=== PATIENT | male | born 1945 | race Caucasian/White ===

== ENCOUNTER 2016-09-19 14:03 | Emergency (ER) | payer MEDICARE, BC ==
[2016-09-19 14:15] VITALS: BP 156/71
--- NOTE | 2016-09-19 14:37 | UC ---
Throat Pain/Nasal [place] HPI - HPI Summary HPI Summary: ST since yesterday morning. Denies fever, cough, nasal congestion, rash, or vomiting. 14-year-old grandson lives with him. - History of Current Complaint Chief Complaint: UCRespiratory Stated Complaint: THROAT ISSUE Time Seen by Provider: 09/19/16 14:20 Hx Obtained From: Patient Onset/Duration: Gradual Onset, Lasting Days Severity: Mild Cough: None Associated Signs & Symptoms: Negative: Sinus Discomfort, Nasal Discharge, Fever , Vomiting, Rash - Allergies/Home Medications Allergies/Adverse Reactions: Allergies Allergy/AdvReac Type Severity Reaction Status Date / Time No Known Allergies Allergy Verified 09/19/16 14:15 Home Medications: Home Medications Ibuprofen [Ibu-200] 2 PRN 09/19/16 [History] PMH/Surg Hx/FS Hx/Imm Hx Endocrine History Of: Denies: Diabetes Cardiovascular History Of: Denies: Hypertension, Pacemaker/ICD GI/ History Of: Denies: Renal Disease - Surgical History Surgical History: Yes Surgery Procedure, Year, and Place: 2010 RIGHT CATARACT EXTRACTION WITH IOL IMPLANT; torn meniscus left knee - Family History Known Family History: Positive: Hypertension - Social History Occupation: Employed Full-time Lives: With Family Alcohol Use: Daily Substance Use Type: None Smoking Status (MU): Never Smoked Tobacco Household Exposure Type: Cigarettes - Immunization History Most Recent Influenza Vaccination: 2016 Review of Systems Constitutional: Negative Skin: Negative Eyes: Negative ENT: Sore Throat Respiratory: Negative Cardiovascular: Negative Gastrointestinal: Negative Genitourinary: Negative Motor: Negative Neurovascular: Negative Musculoskeletal: Negative Neurological: Negative Psychological: Negative All Other Systems Reviewed And Are Negative: Yes Physical Exam Triage Information Reviewed: Yes Appearance: Well-Appearing, No Pain Distress, Well-Nourished Vital Signs: Initial Vital Signs Temp 97.3 F 09/19/16 14:08 Pulse 76 09/19/16 14:08 Resp 18 09/19/16 14:08 BP 156/71 09/19/16 14:08 Pulse Ox 97 09/19/16 14:08 Vital Signs Reviewed: Yes Eye Exam: Normal Eyes: Positive: Conjunctiva Clear ENT Exam: Normal ENT: Positive: Normal ENT inspection, Hearing grossly normal, Pharynx normal, TMs normal Dental Exam: Normal Neck exam: Normal Neck: Positive: Supple, Nontender, No Lymphadenopathy Respiratory Exam: Normal Respiratory: Positive: Chest non-tender, Lungs clear, Normal breath sounds, No respiratory distress, No accessory muscle use Cardiovascular Exam: Normal Cardiovascular: Positive: RRR, No Murmur Musculoskeletal Exam: Normal Neurological Exam: Normal Psychological Exam: Normal Skin Exam: Normal Throat Pain/Nasal Course/Dx - Differential Dx/Diagnosis Provider Diagnoses: pharyngitis, likely viral Discharge - Discharge Plan Condition: Stable Disposition: HOME Patient Education Materials: Pharyngitis (ED) Referrals: Edgar Hutton MD [Primary Care Provider] - Additional Instructions: Your strep test was not read correctly by our machine. I apologize for the inconvenience. As we discussed, I suspect a virus. If you are not clearly improving within 10 days, or if you are significantly worsening at any time, please return here or see your primary care provider for a recheck.
== END 2016-09-19 15:01 | disposition home or self-care (01) ==
LOC: UCEAST 14:03
DX: J02.9 Acute pharyngitis, unspecified (principal); R03.0 Elevated blood-pressure reading, without diagnosis of hypertension; Z98.41 Cataract extraction status, right eye; Z96.1 Presence of intraocular lens; Z77.22 Contact with and (suspected) exposure to environmental tobacco smoke (acute) (chronic)
CPT/HCPCS: 99211; G0463